=== PATIENT | female | born 1950 | race Caucasian/White ===

== ENCOUNTER 2017-06-24 06:47 | Day surgery (SDC) | payer MEDICARE, OTHER ==
[2015-06-17 08:19] VITALS: BMI 32.5
[2017-06-24 09:02] VITALS: TEMP 97
--- NOTE | 2017-06-24 11:46 | CP.SDSHP ---
Same Day Surgery H & P - History Proposed Procedure: EGD Pre-Op Diagnosis: SEE NOTES - Previous Medical/Surgical History Cardiac: Hypertension Endocrine/Metabolic: Diabetes, Other Misc: Other Pain: 4.Moderate Pain - Allergies Allergies: Allergies No Known Allergies Allergy (Verified 06/17/15 08:19) - Physical Exam General Appearance: N Vital Signs: Vital Signs 06/24/17 08:45 Temperature 97 F L Pulse Rate 68 Respiratory 20 Rate Blood Pressure 132/65 O2 Sat by Pulse 97 Oximetry Mental Status: Alert & Oriented x3 Neuro: WNL Heart: Other Lungs: WNL GI: Other - {Optional Preform as Required} Breast: WNL Abdomen: Other Rectal: Other Integument: WNL : WNL Ortho: WNL ENT: WNL - Impression Pt. Evaluated Today:Candidate for Anesthesia & Procedure: Yes - Date & Time Time: 11:47 Short Stay Discharge - Short Stay Discharge Admitting Diagnosis/Reason for Visit: MELENA / DIARRHEA Disposition: HOME/ ROUTINE
[2017-06-24] MEDS ORDERED: Propofol 10 mg/ml Inj (20 ML) ONE (11:50)
[2017-06-24] MEDS ORDERED: Lactated Ringer's 1,000 ML IV ONE (11:50)
[2017-06-24] MEDS ORDERED: Belladonna-Phenobarbital PO ONE (12:20)
[2017-06-24] MEDS ORDERED: Pantoprazole 40 mg EC Tab PO ONE (12:25)
[2017-06-24 13:17] VITALS: BP 118/50; PULSE 62; RESP 18; O2SAT 99
== END 2017-06-24 13:05 | disposition home or self-care (01) ==
LOC: C.ENDO 06:47
PROVIDERS: ATTEND Specialist
DX: K20.9 Esophagitis, unspecified (principal); K44.9 Diaphragmatic hernia without obstruction or gangrene; K92.1 Melena; R19.7 Diarrhea, unspecified; K25.9 Gastric ulcer, unspecified as acute or chronic, without hemorrhage or perforation
CPT/HCPCS: 43239; 82948; 88305; 88342; J2704; J7120

== ENCOUNTER 2017-09-22 07:15 | Day surgery (SDC) | payer MEDICARE, OTHER ==
[2017-09-22 08:09] VITALS: BMI 33.5
[2017-09-22] MEDS ORDERED: Lactated Ringer's 1,000 ML IV ONE ×2 (09:45)
--- NOTE | 2017-09-22 09:49 | CP.SDSHP ---
Same Day Surgery H & P - History Proposed Procedure: EGD Pre-Op Diagnosis: SEE NOTES - Previous Medical/Surgical History Cardiac: Hypertension Endocrine/Metabolic: Diabetes, Other Neuro: Backaches Misc: Other Pain: 4.Moderate Pain - Allergies Allergies: Allergies No Known Allergies Allergy (Verified 06/17/15 08:19) - Physical Exam General Appearance: N Vital Signs: Vital Signs 09/22/17 08:17 Temperature 97.3 F L Pulse Rate 55 L Respiratory 18 Rate Blood Pressure 126/56 L O2 Sat by Pulse 95 Oximetry Mental Status: Alert & Oriented x3 Neuro: WNL Heart: Other Lungs: WNL GI: Other - {Optional Preform as Required} Breast: WNL Abdomen: Other Rectal: Other Integument: WNL : WNL Ortho: Other ENT: WNL - Impression Pt. Evaluated Today:Candidate for Anesthesia & Procedure: Yes - Date & Time Time: 09:48 Short Stay Discharge - Short Stay Discharge Admitting Diagnosis/Reason for Visit: DYSPEPSIA Disposition: HOME/ ROUTINE
[2017-09-22] MEDS ORDERED: Lidocaine Hydrochloride 5 ML INJ ONE (09:50)
[2017-09-22] MEDS ORDERED: Propofol 10 mg/ml Inj (20 ML) ONE (09:50)
[2017-09-22] MEDS ORDERED: Pantoprazole 40 mg EC Tab PO ONE (09:57)
[2017-09-22] MEDS ORDERED: Belladonna-Phenobarbital PO ONE (10:25)
[2017-09-22 11:32] VITALS: TEMP 96.7
[2017-09-22 11:34] VITALS: RESP 19; O2SAT 100
[2017-09-22 11:37] VITALS: BP 132/59; PULSE 58
== END 2017-09-22 11:15 | disposition home or self-care (01) ==
LOC: C.ENDO 07:15
PROVIDERS: ATTEND Specialist
DX: B37.81 Candidal esophagitis (principal); K44.9 Diaphragmatic hernia without obstruction or gangrene; K25.9 Gastric ulcer, unspecified as acute or chronic, without hemorrhage or perforation; K29.00 Acute gastritis without bleeding
CPT/HCPCS: 43239; 82948; 88305; 88342; J2704; J7120